=== PATIENT | female | born 1935 | race American Indian/Alaskan Native ===

== ENCOUNTER 2017-08-22 16:55 | Emergency (ER) | payer MEDICARE ==
[2017-08-22 18:02] VITALS: RESP 18
--- NOTE | 2017-08-22 19:51 | C.PDOC ---
History Of Present Illness 82 year old female presents to the ED for evaluation of head injury to right frontoparietal area earlier this evening. Patient reports that she was walking when she lost her balance and hit a wall. She is complaining of pain at site of injury. Denies LOC. No dizziness. - HPI Chief Complaint (Nursing): Trauma History Per: Patient History/Exam Limitations: no limitations Onset/Duration Of Symptoms: Mins Location Of Injury: Right: Head Recent travel outside of the [place]: No Past Medical History Reviewed: Historical Data, Nursing Documentation, Vital Signs Vital Signs: Last Vital Signs Temp 97.9 F 08/22/17 17:58 Pulse 69 08/22/17 17:58 Resp 18 08/22/17 17:58 BP 119/70 08/22/17 17:58 Pulse Ox 99 08/22/17 21:48 - Medical History PMH: HTN, Hypothyroidism Family History: States: Unknown Family Hx - Social History Hx Alcohol Use: No Hx Substance Use: No - Immunization History Hx Tetanus Toxoid Vaccination: No Hx Influenza Vaccination: No Review Of Systems Except As Marked, All Systems Reviewed And Found Negative. Constitutional: Negative for: Fever, Chills Eyes: Negative for: Vision Change ENT: Negative for: Ear Pain, Throat Pain Cardiovascular: Negative for: Chest Pain, Palpitations Respiratory: Negative for: Cough, Shortness of Breath Gastrointestinal: Negative for: Nausea, Vomiting, Abdominal Pain, Diarrhea Skin: Negative for: Rash Neurological: Positive for: Headache. Negative for: Weakness, Numbness, Dizziness Physical Exam - Physical Exam Appears: Well, Non-toxic, No Acute Distress Skin: Normal Color, Warm, Dry Head: Normacephalic, Other (Tenderness right frontoparietal area with soft tissue swelling, no deformity) Eye(s): bilateral: Normal Inspection, PERRL, EOMI Oral Mucosa: Moist Throat: Normal Neck: Normal, Normal ROM, No Midline Cervical Tenderness, No Paracervical Tenderness, Supple Chest: Symmetrical Cardiovascular: Rhythm Regular (Rate Regular) Respiratory: Normal Breath Sounds, No Rales, No Rhonchi, No Wheezing Gastrointestinal/Abdominal: Soft, No Tenderness Back: Normal Inspection Extremity: No Normal ROM, No Deformity Extremity: Bilateral: Atraumatic Neurological/Psych: Oriented x3, Normal Speech, Normal Motor, Normal Sensation, Other (No focal neurological deficits ) ED Course And Treatment O2 Sat by Pulse Oximetry: 99 - CT Scan/US CT Head Other Rad Studies (CT/US): Read By Radiologist, Radiology Report Reviewed CT/US Interpretation: IMPRESSION: No acute intracranial abnormality. Medical Decision Making Medical Decision Making: Impression: head injury Plan: -Will order head CT and reassess. Head CT negative. Will discharge home. Disposition Counseled Patient/Family Regarding: Diagnosis - Disposition Referrals: [facility] [Outside] Disposition: HOME/ ROUTINE Disposition Time: 21:49 Condition: STABLE Instructions: Minor Head Injury Forms: DC Devices (Bengali) - POA Present On Arrival: None - Clinical Impression Clinical Impression: Head injury without concussion or intracranial hemorrhage - Scribe Statement The provider has reviewed the documentation as recorded by the Scribe (Angelo Feliciano) Provider Attestation: All medical record entries made by the Scribe were at my direction and personally dictated by me. I have reviewed the chart and agree that the record accurately reflects my personal performance of the history, physical exam, medical decision making, and the department course for this patient. I have also personally directed, reviewed, and agree with the discharge instructions and disposition.
--- NOTE | 2017-08-22 21:46 | CT ---
EXAM: CT Head Without Intravenous Contrast CLINICAL HISTORY: 82 years old, female; Injury or trauma; Fall; Initial encounter; Abrasion; Forehead; Additional info: Injury, right fronto parietal area TECHNIQUE: Axial computed tomography images of the head/brain without intravenous contrast. All CT scans at this facility use one or more dose reduction techniques, viz.: automated exposure control; ma/kV adjustment per patient size (including targeted exams where dose is matched to indication; i.e. head); or iterative reconstruction technique. COMPARISON: No relevant prior studies available. FINDINGS: Brain: Prominence of the sulci and ventricular system consistent with atrophy. Hypodensity in the white matter consistent with chronic small vessel disease. Calcifications left parietal deep white matter. No hemorrhage. Ventricles: Unremarkable. No ventriculomegaly. Bones/joints: Unremarkable. No acute fracture. Soft tissues: Unremarkable. Sinuses: Unremarkable as visualized. No acute sinusitis. Mastoid air cells: Unremarkable as visualized. No mastoid effusion. IMPRESSION: No acute intracranial abnormality.
[2017-08-22 22:07] VITALS: BP 125/74; PULSE 75; TEMP 98.4; O2SAT 98
== END 2017-08-22 22:16 | disposition home or self-care (01) ==
LOC: C.ER 16:55
DX: S09.90XA Unspecified injury of head, initial encounter (principal); W22.01XA Walked into wall, initial encounter; Y93.01 Activity, walking, marching and hiking; I10 Essential (primary) hypertension; E03.9 Hypothyroidism, unspecified